=== PATIENT | female | born 1965 | race Caucasian/White ===

== ENCOUNTER 2016-10-08 07:59 | Emergency (ER) | payer BC ==
[~2016-10-08] VITALS: Wt 58.0 kg
[~2016-10-08 07:59] MED LIST: ASPI-676; METF500T4
[2016-10-08] MEDS ORDERED: HYDR-906 PO (08:54)
[2016-10-08] MEDS ORDERED: morphine 10 MG INJ IM ONE (09:00)
--- NOTE | 2016-10-08 09:15 | ERD ---
ER Documentation Chief Complaint Date/Time DATE: 10/08/16 TIME: 09:13 Chief Complaint 5 DAYS AGO LOW BACK PAIN AFTER PICKING UP SOMETHING. GETTING WORSE HPI 51-year-old female comes emergency department with low back pain for the past 5 days, she states that she was picking item up and on her way up she felt an achy pain. It is better when she is sitting, worse with standing or any weightbearing. Is localized in the low back, nonradiating, she denies saddle anesthesia loss of bowel bladder function. Denies trauma. Denies fevers, chills. She has already tried taking ibuprofen and Naprosyn at home. ROS All systems reviewed and are negative except as per history of present illness. Medications Home Meds Active Scripts Hydrocodone/Acetaminophen ([place] 5-325 Tablet) 1 Each Tablet, 1 TAB PO Q6H Y for PAIN, #15 TAB Prov:ENOC TRAN PA-C 10/08/16 Reported Medications Aspirin (Tyrone Child) 81 Mg Chew 02/03/10 Metformin* (Glucophage*) 500 Mg Tab, 0 Refills 02/03/10 Allergies Allergies: Coded Allergies: iron (Verified Allergy, Intermediate, 02/18/12) SWOLLEN LOWER EXTREMITIES PMhx/Soc History of Surgery: Yes (HYSTERECTOMY, 2X C SECTION) Anesthesia Reaction: No Hx Neurological Disorder: No Hx Respiratory Disorders: No Hx Cardiac Disorders: No Hx Psychiatric Problems: No Hx Miscellaneous Medical Probl: Yes (chronic back pain) Hx Alcohol Use: No Hx Substance Use: No Hx Tobacco Use: No Physical Exam Vitals Vital Signs Date Time Temp Pulse Resp B/P Pulse Ox O2 Delivery O2 Flow Rate FiO2 10/08/16 08:07 97.8 78 18 150/84 100 Physical Exam General: Well-developed, well-nourished. The patient appears in no acute distress. HEENT: Head is normocephalic, atraumatic. No scleral icterus. Neck: Supple. Nontender. Lungs: Clear to auscultation. Normal air movement. Heart: Regular rate and rhythm. S1 and S2 are normal. No murmurs, gallops, or rubs. Abdomen: Soft, nontender, nondistended. Bowel sounds are normoactive. Back: No midline tenderness, no step-offs. She has reproducible tenderness with back flexion and extension. Strength lower extremities 5 out of 5 bilaterally. Extremities: No clubbing or cyanosis. Normal pulses. Moving extremities x 4. No weakness. Neurologic: Alert and oriented 3. No focal deficits. Skin: Normal turgor. No rash or lesions. Results 24 hrs Current Medications Medications (Trade) Dose Ordered Sig/Clemencia Route PRN Reason Start Time Stop Time Status Last Admin Dose Admin Morphine Sulfate (morphine) 2 mg ONCE ONCE IM 10/08/16 09:00 10/08/16 09:01 DC 10/08/16 09:01 Procedures/MDM ED course: She was given morphine 2 mg IM. She reports significant improvement of her pain. MDM: 51-year-old female presents with low back pain after standing up from a bending position 5 days ago. She has localized pain, there is no midline tenderness or signs of an acute fracture, neurologic emergency, cauda equina, compression syndrome. She is distally neurovascularly intact and explained that we would normally do not take x-rays given that she does not have any midline tenderness or trauma. Patient was advised that she may also follow-up with her primary care doctor in several weeks once her symptoms resolve, follow- up with MRI imaging. Departure Diagnosis: Primary Impression: Back pain Condition: Good Patient Instructions: Back Sprain/Strain Additional Instructions: Call your primary care doctor TOMORROW for an appointment during the next 1-2 days.See the doctor sooner or return here if your condition worsens before your appointment time. ENOC TRAN PA-C Oct 08, 2016 09:15
== END 2016-10-08 09:39 | disposition home or self-care (01) ==
LOC: FTE 07:59
DX: M54.5 Low back pain (principal)
CPT/HCPCS: 96372; 99284; J2270

== ENCOUNTER → 2016-12-17 | Outpatient (CLI) | payer BC ==
[~2016-12-17] MED LIST changes: +HYDR-906 PO
--- NOTE | 2016-12-17 17:30 | RADRPT ---
PROCEDURE: XR Knees. CLINICAL INDICATION: Bilateral knee pain. TECHNIQUE: Total of eight views. Weightbearing frontal, oblique, and lateral views of the both kn ees. Patellar views of both knees. COMPARISON: No prior study is available for comparison. FINDINGS: There is no fracture or dislocation. The soft tissues are normal. There are degenerative changes with osteophytes arising from the medial joint compartment margins bi laterally. There is no lytic or blastic lesion. There is no radiopaque foreign body. IMPRESSION: 1. Mild degenerative change of both knees. 2. No acute abnormality. RPTAT: QQ .Darwin Wallace MD, MD Date Time Electronically viewed and signed by .Darwin Wallace MD, on 12/17/2016 17:30 .R/
== END | disposition home or self-care (01) ==
LOC: HKI 14:38
PROVIDERS: ATTEND Orthopaedic Surgery
DX: M25.561 Pain in right knee (principal); M25.562 Pain in left knee; M22.42 Chondromalacia patellae, left knee; M22.41 Chondromalacia patellae, right knee
CPT/HCPCS: 73564; Z7500; G0463

== ENCOUNTER 2018-01-31 06:15 | Day surgery (SDC) | END 2018-01-31 14:41 | disposition home or self-care (01) ==